=== PATIENT | male | born 1995 | race Caucasian/White ===

== ENCOUNTER 2016-09-15 01:59 | Emergency (ER) | payer OTHER ==
[2016-09-15 02:08] VITALS: BP 106/51; PULSE 58; TEMP 97.8; BMI 26.4
[2016-09-15] MEDS ORDERED: SODIUM CHLORIDE 1,000 ML IV ONE ×2 (02:10)
[2016-09-15] MEDS ORDERED: LOPERAMIDE HCL 2 MG CAPSULE PO ONE (02:11)
--- NOTE | 2016-09-15 02:12 | PDOC ---
History of Present Illness - General Chief Complaint: Diarrhea Stated Complaint: DIARRHEA Time Seen by Provider: 09/15/16 02:08 History Source: Patient Exam Limitations: No Limitations - History of Present Illness Initial Comments: 09/15/16 02:24 This is a 18-year-old male comes in complaining of nausea vomiting and diarrhea. Patient said he had nausea and vomiting yesterday and today the diarrhea started. Patient has had multiple episodes of the diarrhea he did take Imodium AD 3 tablets prior to coming in. He denies any blood in his stool any fevers or chills. He denies any abdominal pain chest pain or shortness of breath. He denies any recent travel outside of the [place]. PAST MEDICAL HISTORY: no significant history PAST SURGICAL HISTORY: no significant history FAMILY HISTORY: no pertinant history SOCIAL HISTORY: Pt lives with family and is employed. MEDICATIONS: reviewed ALLERGIES: As per nursing notes Review of Systems General: No fevers or chills, no weakness, no weight loss HEENT: No change in vision. No sore throat,. No ear pain CardioVascular: No chest pain or shortness of breath Respiratory:No cough, or wheezing. Gastrointestinal: Nausea vomiting and diarrhea as per history of present illness Genitourinary: No dysuria, hematuria, or frequency Musculoskeletal: No joint or muscle pain or swelling Neurologic: No headache, vertigo, dizziness or loss of consciousness Psychiatric: nor depression Skin: No rashes or easy bruising Endocrine: no increased thirst or abnormal weight change Allergic: no skin or latex allergy All other systems reviewed and normal Exam: General: Well-nourished well-developed individual, no acute distress HEENT: Throat: Normal, tonsils normal, no erythema or exudate, mucous membranes are dry Neck: Supple, no meningeal signs, no lymphadenopathy Eyes::Pupils equal reactive and round, extraocular motion intact Chest: Nontender to palpation Cardiac: S1-S2 normal, regular rate and rhythm, no murmurs rubs or gallops Respiratory: Lungs clear to auscultation bilateral Abdomen: Soft, nondistended, normal bowel sounds, nontender to palpation diffusely Extremities: Warm, dry, no cyanosis, clubbing, or edema Skin: No rashes Neuro: Alert and oriented x3, nonfocal exam, grossly intact, normal gait Psych: Normal mood and affect Past History - Past Medical History Allergies/Adverse Reactions: Allergies Allergy/AdvReac Type Severity Reaction Status Date / Time No Known Allergies Allergy Verified 11/01/15 17:06 Home Medications: Ambulatory Orders NK [No Known Home Medication] 09/15/16 - Immunization History Immunization Up to Date: Yes - Psycho/Social/Smoking Cessation Hx Anxiety: Yes Suicidal Ideation: No Smoking History: Never smoked Have you smoked in the past 12 months: Yes Number of Cigarettes Smoked Daily: 0 If you are a former smoker, when did you quit?: FED 2016 'Breaking Loose' booklet given: 12/26/14 Hx Alcohol Use: Yes (SOCIAL) Drug/Substance Use Hx: No Substance Use Type: None *Physical Exam - Vital Signs Last Vital Signs Temp Pulse Resp BP Pulse Ox 97.8 F 58 L 16 106/51 100 09/15/16 02:05 09/15/16 02:05 09/15/16 02:05 09/15/16 02:05 09/15/16 02:05 *DC/Admit/Observation/Transfer Diagnosis at time of Disposition: Dehydration Diarrhea Qualifiers: Diarrhea type: unspecified type Qualified Code(s): R19.7 - Diarrhea, unspecified - Discharge Dispostion Disposition: HOME Condition at time of disposition: Stable Admit: No - Patient Instructions Printed Discharge Instructions: Diarrhea, Diarrhea (Alternative Therapy) Additional Instructions: You can take Imodium 1 tablet every time you have diarrhea. Do not take more than a maximum of 8 tablets in a 24-hour time period. Stay well hydrated with Pedialyte or Gatorade or a sports drink.. Return to the emergency department immediately with ANY new, persistent or worsening symptoms. Continue any medications as previously prescribed by your physician. You should follow up with your primary doctor as soon as possible regarding today's emergency department visit. . Please make sure your doctor reviews the results of your emergency evaluation. Thank you for coming to the Emergency Department today for your care. It was a pleasure to see you today. Please note that your evaluation is INCOMPLETE until you follow-up with your doctor.
[2016-09-15] MEDS ORDERED: LOPERAMIDE HCL 2 MG CAPSULE ONE (02:19)
== END 2016-09-15 03:40 | disposition home or self-care (01) ==
LOC: FER 01:59
PROC: 3E0337Z Introduction of Electrolytic and Water Balance Substance into Peripheral Vein, Percutaneous Approach (ICD-10-PCS; principal; 2016-09-15)
DX: E86.0 Dehydration (principal); R19.7 Diarrhea, unspecified
CPT/HCPCS: 99282-25